=== PATIENT | female | born 1995 | race Caucasian/White ===

== ENCOUNTER 2021-05-12 12:00 | Inpatient (IN) | payer OTHER ==
[2021-05-12] MEDS ORDERED: hydrALAZINE 20 MG/ML VIAL SLOW IVP PRN ×2 (12:48→18:00)
[2021-05-12 12:54] VITALS: BMI 38.0
[2021-05-12 13:29] LABS: Fetal Membranes Rupture No Membranes Rupture (No Rupture)
[2021-05-12 15:15] LABS: #Eosinphils 0.1 10x3/uL (0.0-0.5); #Monocytes 0.6 10x3/uL (0.0-1.1); %Basophils 0.3 % (0.0-2.0); %Eosinophils 0.9 % (0.0-6.0); %Lymphocytes 19.2 % (18.0-47.0); %Monocytes 5.9 % (0.0-10.0); %Neutrophils 73.2 % (40.0-75.0); Hemoglobin 10.5 g/dL (12.0-15.5); Mean Corpuscular Hemoglobin 25.6 pg (27.0-33.0); Mean Corpuscular Volume 82.7 fl (81.6-98.3); Mean Platelet Volume 11.3 fl (7.4-10.4); Platelet Count 206 10x3/uL (150-450); RBC Distribution Width 15.9 % (11.5-14.5); White Blood Cell (WBC) Count 9.6 10x3/uL (3.5-10.5)
[2021-05-12] MEDS ORDERED: Ibuprofen 800 MG TAB PO PRN (18:00)
[2021-05-12] MEDS ORDERED: NS w/ Oxytocin 30 units 500 ML IV SCH ×2 (18:00)
[2021-05-12] MEDS ORDERED: Lidocaine 1% (PF) 30 ML VIAL SC PRN (18:00)
[2021-05-12] MEDS ORDERED: Lactated Ringer's 1,000 ML IV SCH ×2 (18:00)
[2021-05-12] MEDS ORDERED: Ondansetron PF 4 MG/2 ML Vial IVP PRN (18:00)
[2021-05-12] MEDS ORDERED: Promethazine HCl 25 MG/ML VIAL IM PRN (18:00)
[2021-05-12] MEDS ORDERED: HYDROcodone/Acetaminophen 5/325 mg Tablet PO PRN (18:00)
[2021-05-12 18:16] LABS: Mean Corpuscular HGB CONC 32.7 g/dL (32.0-36.0); Mean Corpuscular Hemoglobin 25.9 pg (27.0-33.0); Mean Corpuscular Volume 79.2 fl (81.6-98.3); Mean Platelet Volume 11.4 fl (7.4-10.4); Platelet Count 211 10x3/uL (150-450); RBC Distribution Width 15.9 % (11.5-14.5); Red Blood Cell (RBC) Count 4.24 10x6/uL (3.90-5.03); White Blood Cell (WBC) Count 9.1 10x3/uL (3.5-10.5)
[2021-05-12 18:49] LABS: Syphilis Antibody Nonreactive (Nonreactive); Syphilis Antibody Index 0.04 S/CO (<1.00 Non-Reactive)
[2021-05-12 18:50] LABS: HBSAg Index 0.17 S/CO (0-0.99); Hep B Surf Ag Non-Reactive S/CO (NonReactive)
[2021-05-12 23:01] LABS: SARS-CoV-2 NAA Rapid Test Not Detected (NotDetected)
[2021-05-13] MEDS ORDERED: Fentanyl 2 mcg/Bup 0.1% Cadd 100 ML ONE ×2 (00:01→09:30)
[2021-05-13] MEDS ORDERED: Lactated Ringer's 500 ML IV PRN (01:16)
[2021-05-13] MEDS ORDERED: Acetaminophen 325 MG TAB PO PRN (01:16)
[2021-05-13] MEDS ORDERED: Naloxone HCl 0.4 mg/ml Vial IVP PRN ×2 (01:16)
[2021-05-13] MEDS ORDERED: ePHEDrine Sulfate 50 MG/10 ML VIAL SLOW IVP PRN (01:16)
[2021-05-13] MEDS ORDERED: Promethazine HCl 25 MG/ML VIAL IM PRN (01:16)
[2021-05-13] MEDS ORDERED: Hydrocerin (Eucerin) Cream 120 gm Jar TOP PRN (01:16)
[2021-05-13] MEDS ORDERED: diphenhydrAMINE 50 MG/ML VIAL IVP PRN (01:16)
[2021-05-13] MEDS ORDERED: Ondansetron PF 4 MG/2 ML Vial IVP PRN (01:16)
[2021-05-13] MEDS ORDERED: Fentanyl 2 mcg/Bupivacaine 0.1% Cassette 100 ML EPIDURAL SCH (01:30)
[2021-05-13] MEDS ORDERED: Communication Order-Pharmacy FS SCH (01:30)
[2021-05-13] MEDS ORDERED: Calcium Carbonate 500 MG ChewTAB PO PRN (02:54)
[2021-05-13] MEDS ORDERED: hydrOXYzine 25 MG TAB PO PRN (08:49)
[2021-05-13] MEDS ORDERED: Benzocaine-Menthol 82.5 ML CAN TOP PRN (13:36)
[2021-05-13] MEDS ORDERED: Methylergonovine 0.2 MG/ML VIAL IM PRN (13:36)
[2021-05-13] MEDS ORDERED: HYDROcodone/Acetaminophen 5/325 mg Tablet PO PRN (13:36)
[2021-05-13] MEDS ORDERED: Misoprostol 200 MCG TAB VAG PRN (13:36)
[2021-05-13] MEDS ORDERED: NS w/ Oxytocin 30 units 500 ML IV SCH (13:36)
[2021-05-13] MEDS ORDERED: Milk Of Magnesia 30 ML UDCUP PO PRN (13:36)
[2021-05-13] MEDS ORDERED: hydrALAZINE 20 MG/ML VIAL SLOW IVP PRN (13:36)
[2021-05-13] MEDS ORDERED: Bisacodyl 10 MG SUPP PR PRN (13:36)
[2021-05-13] MEDS: Ibuprofen 800 MG TAB PO SCH ×2 (15:00→21:50)
[2021-05-13] MEDS: Ferrous Sulfate 325 MG TAB PO SCH (17:00)
[2021-05-13] MEDS: HYDROcodone/Acetaminophen 5/325 mg Tablet PO PRN (19:41)
[2021-05-13] MEDS: Docusate 100 MG CAP PO SCH (21:50)
[2021-05-14] MEDS: HYDROcodone/Acetaminophen 5/325 mg Tablet PO PRN ×3 (02:44→15:41)
[2021-05-14] MEDS: Ibuprofen 800 MG TAB PO SCH ×2 (05:38→14:19)
[2021-05-14] MEDS: Ferrous Sulfate 325 MG TAB PO SCH ×2 (07:13→07:14)
[2021-05-14] MEDS ORDERED: Prenatal Vitamin 1 TAB PO SCH (09:00)
[2021-05-14] MEDS: Docusate 100 MG CAP PO SCH (09:32)
[2021-05-14 11:27] VITALS: BP 124/66; TEMP 98.3
[2021-05-14] MEDS ORDERED: Boostrix 0.5 ML (Tdap) VIAL IM ONE (13:36)
== END 2021-05-14 20:00 | disposition home or self-care (01) | DRG 805 ==
LOC: CSHLD/OP 12:00 → CSHLD 22:06 → CSHPED 05-13 13:40
PROVIDERS: ADMIT Obstetrics & Gynecology; ATTEND Obstetrics & Gynecology
PROC: 10E0XZZ Delivery of Products of Conception, External Approach (ICD-10-PCS; principal; 2021-05-12)
PROC: 0HQ9XZZ Repair Perineum Skin, External Approach (ICD-10-PCS; 2021-05-12)
DX: O42.02 Full-term premature rupture of membranes, onset of labor within 24 hours of rupture (principal); O75.3 Other infection during labor; Z37.0 Single live birth; Z3A.38 38 weeks gestation of pregnancy; Z20.822 Contact with and (suspected) exposure to COVID-19; F41.9 Anxiety disorder, unspecified; F90.9 Attention-deficit hyperactivity disorder, unspecified type; O99.344 Other mental disorders complicating childbirth; Z86.16 Personal history of COVID-19; N76.0 Acute vaginitis; O70.0 First degree perineal laceration during delivery; O69.81X0 Labor and delivery complicated by cord around neck, without compression, not applicable or unspecified; B96.89 Other specified bacterial agents as the cause of diseases classified elsewhere
CPT/HCPCS: 36415; 51702; 76815; 84112; 85025; 86780; 86850; 86900; 86901; 87340; 87480; 87510; 87660; 99285; J2405; J2590; U0002